=== PATIENT | female | born 1945 | race Caucasian/White ===

== ENCOUNTER 2020-03-25 06:08 | Inpatient (IN) | payer MEDICARE, OTHER ==
--- NOTE | 2020-03-21 10:37 | PCM.PREANE ---
Preanesthetic Assessment - Procedure Proposed Procedure: Right Total Knee Arthroplasty - Anesthesia/Transfusion/Family Hx Anesthesia History: Prior Anesthesia Without Reaction Family History of Anesthesia Reaction: No Transfusion History: No Prior Transfusion(s) Intubation History: Unknown - Review of Systems Pulmonary: No Symptoms (ETOH: rarely), Cough (seasonal allergies) Cardiovascular: No Symptoms (History of HTN), Lightheadedness Gastrointestinal: No Symptoms Neurological: No Symptoms (History of vertigo), Numbness (neuropathy in all toes bilateral feet) Other: Reports: Thyroid Problems (hypothyroid), Sinus Problem (chronic rhinitis), Depression - Physical Assessment NPO Status Date: 03/24/20 NPO Status Time: 20:45 Vital Signs: HR:86 B/P:182/87 Sat:99% Temp:97 Resp:20 Height: 1.63 m Weight: 71 kg ASA Class: 3 Mental Status: Alert & Oriented x3 Airway Class: Mallampati = 2 Dentition: Reports: Normal Dentition, Caries Thyro-Mental Finger Breadths: 3 Mouth Opening Finger Breadths: 3 ROM/Head Extension: Full Lungs: Clear to Auscultation, Normal Respiratory Effort Cardiovascular: Regular Rate, Regular Rhythm, No Murmurs - Lab Values: Laboratory Last Values MRSA (PCR) Negative 03/13/20 13:41 All labs reviewed and noted and within acceptable ranges to proceed with scheduled procedure. - Imaging/EKG Impressions: CXR: negative EKG: NSR rate =66 - Allergies Allergies/Adverse Reactions: Allergies Allergy/AdvReac Type Severity Reaction Status Date / Time amlodipine Allergy Rash Verified 03/22/20 11:17 cortisone [Cortisone] Allergy Rash Verified 03/22/20 11:17 pollen extracts Allergy Swollen Verified 03/22/20 11:17 Eyes ranitidine HCl [From Zantac] Allergy Hives Verified 03/22/20 11:17 Sulfa (Sulfonamide Allergy Cannot Verified 03/22/20 11:17 Antibiotics) Remember benazepril [From Lotensin] AdvReac Headache Verified 03/22/20 11:17 benazepril HCl AdvReac Headache Verified 03/22/20 11:17 [From Lotensin HCT] fosinopril sodium AdvReac Ringing in Verified 03/22/20 11:17 [From Monopril] the Ears metoprolol succinate AdvReac Nausea Verified 03/22/20 11:17 [From Toprol XL] - Anesthesia Plan Pre-Op Medication Ordered: None - Acknowledgements Anesthesia Type Planned: Spinal (Right Adductor Canal Block under US guidance for post operative pain control requested by Dr. Leon) Pt an Appropriate Candidate for the Planned Anesthesia: Yes Alternatives and Risks of Anesthesia Discussed w Pt/Guardian: Yes Pt/Guardian Understands and Agrees with Anesthesia Plan: Yes PreAnesthesia Questionnaire Cardiovascular History: Reports: Hypertension Musculoskeletal History: Reports: Arthritis - Past Surgical History HEENT Surgical History: Reports: Cataract Surgery, Eye Surgery Female Surgical History: Reports: Hysterectomy, Salpingo-Oophorectomy - HOME MEDS Home Medications: Home Meds Calcium Carb/D3/Magnesium/Zinc [Erik Mag Zinc + D3] 1 tab PO TID 03/22/20 [History] Cholecalciferol (Vitamin D3) [Vitamin D3] 5,000 unit PO DAILY 03/22/20 [History] Levothyroxine [Synthroid] 50 mcg PO DAILY 03/22/20 [History] Losartan Potassium 50 mg PO DAILY 03/22/20 [History] Melatonin 5 - 10 mg PO BEDTIME PRN 03/22/20 [History] Mineral Oil, Light/Mineral Oil [Soothe Xp Eye Drops] 1 drop EYEBOTH ASDIRECTED PRN 03/22/20 [History] Multivitamin [Multiple Vitamins] 1 tab PO DAILY 03/22/20 [History] Turmeric Root Extract [Turmeric] 500 mg PO DAILY 03/22/20 [History] Ubidecarenone [Coq-10] 100 mg PO DAILY 03/22/20 [History] Vit A/C/E AC/Znox/Cupric Oxide [Eye Vitamin-Minerals Tablet] 1 tab PO BID 03/22/20 [History] Vitamin B Complex 1 cap PO DAILY 03/22/20 [History] Vitamin E 400 unit PO DAILY 03/22/20 [History] - CURRENT (IN HOUSE) MEDS Current Meds: Current Medications Bisacodyl (Dulcolax) 5 mg PO DAILY PRN PRN Reason: Constipation Morphine Sulfate 8 mg/Epinephrine HCl 0.3 mg/Cefuroxime Sodium 750 mg/Ketorolac Tromethamine 30 mg/Sodium Chloride 7.9 ml 0 mg .XX ASDIRECTED PRN PRN Reason: Pain Cyclobenzaprine HCl (Flexeril) 10 mg PO TID PRN PRN Reason: Spasms Docusate Sodium (Colace) 100 mg PO BID [facility] Cefazolin Sodium/Dextrose 2 gm (/ Premix) 50 mls @ 100 mls/hr IV Q8H [facility] Stop: 03/25/20 22:29 Lactated Ringer's (Ringers, Lactated) 1,000 mls @ 125 mls/hr IV ASDIRECTED [facility] Ketorolac Tromethamine (Toradol) 15 mg IVPUSH Q6H PRN PRN Reason: Pain Lidocaine/Sodium Bicarbonate (Buffered Lidocaine 1% In Ns 8.4%) 0.25 ml IDERM ONETIME PRN PRN Reason: Prior to IV Start Magnesium Hydroxide (Milk Of Magnesia) 30 ml PO BID PRN PRN Reason: Constipation Morphine Sulfate (Morphine) 2 mg IVPUSH Q2H PRN PRN Reason: Breakthrough Pain Naloxone HCl (Narcan) 0.1 mg IVPUSH Q5M PRN PRN Reason: Oversedation Ondansetron HCl (Zofran) 4 mg IVPUSH Q6H PRN PRN Reason: Nausea/Vomiting Oxycodone/Acetaminophen (Percocet 325-5 Mg) 1 - 2 tab PO Q4H PRN PRN Reason: Pain Rivaroxaban (Xarelto) 10 mg PO DAILY [facility] Senna (Senna) 8.6 mg PO BID PRN PRN Reason: Constipation Sodium Chloride (Saline Flush) 10 ml FLUSH ASDIRECTED PRN PRN Reason: Keep Vein Open Discontinued Medications Aspirin (Ecotrin) 325 mg PO BID [facility]
--- NOTE | 2020-03-21 10:39 | PCM.SN.2 ---
- Free Text/Narrative Note: Right selective femoral nerve block at the adductor canal for post-procedure pain control under US guidance requested by Dr. Leon. Time Out: 08 Start: 0853 End: 0900 Chart reviewed. Consent signed. Questions answered. Appropriate monitors applied. Time out performed. Right mid-shaft femur identified with ultrasound, scanning medially of femur, the femoral artery in the adductor canal visualized, and the femoral nerve located laterally to the artery. The skin was prepped lateral to the ultrasound probe with chlorahexadine times two. The 21ga 4 insulated block needle was inserted under direct ultrasound guidance into the adductor canal. 25mL of 0.5% ropivacaine with 1:200,000 epinephrine was injected circumferentially around the nerve with intermittent negative aspiration noted. Patient tolerated the procedure well. Sterile technique noted along with sterile gloves, mask, and sterile probe cover. See picture on progress note and vital signs on nurses notes. Block completed in PACU. Awilda Cash CRNA
[~2020-03-25 06:08] MED LIST: Bisacodyl 5 MG Tab PO PRN; Cyclobenzaprine 10 MG Tab PO PRN; EPINEPHrine 1 MG/ML SDV ONE; Ketamine 500 mg/10 ML MDV ONE; Lactated Ringers 1,000 ML IV SCH; Lactated Ringers 1,000 ML ONE; Lidocaine 1% 4 ML ONE; Lidocaine 1%/Sod Bicarbonate in NS 8.4% 1 ML Syringe IDERM PRN; Magnesium Hydroxide 400 MG/5 ML Susp 30 ML Cup PO PRN; Midazolam 1 MG/ML 2 ML SDV ONE; Morphine 2 MG/ML SYRINGE IVPUSH PRN; Naloxone 0.4 MG/ML SDV IVPUSH PRN; Ondansetron 4 MG/2 ML SDV IVPUSH PRN; Ondansetron 4 MG/2 ML SDV ONE; Propofol 200 MG/20 ML SDV ONE; Ropivacaine 0.5% 5 MG/ML 30 ML SDV ONE; Sennosides 8.6 MG Tab PO PRN; Sodium Chloride 0.9% 10 ML Syringe FLUSH PRN; ceFAZolin 1 GM Vial ONE; fentaNYL 100 MCG/2 ML SDV ONE
[2020-03-25] MEDS ORDERED: ceFAZolin 1 GM Vial ONE (06:12)
[2020-03-25] MEDS ORDERED: Bupivacaine 0.25% 10 ML SDV ONE (06:12)
[2020-03-25] MEDS ORDERED: Iodine/Sodium Iodide 2% Tincture 30 ML Bottle ONE (06:12)
[2020-03-25] MEDS ORDERED: Vancomycin 1 GM SDV ONE (06:12)
[2020-03-25] MEDS ORDERED: Morphine Sulfate 8 MG, EPINEPHrine 0.3 MG, Cefuroxime 750 MG, Ketorolac 30 MG, Sodium C... PRN ×10 (07:08→07:35)
[2020-03-25] MEDS ORDERED: fentaNYL 100 MCG/2 ML SDV IVPUSH PRN (07:17)
[2020-03-25] MEDS ORDERED: diphenhydrAMINE 50 MG/ML SDV IVPUSH PRN (07:17)
[2020-03-25] MEDS ORDERED: HYDROmorphone 0.5 MG/0.5 ML Syringe IVPUSH PRN (07:17)
[2020-03-25] MEDS ORDERED: Ondansetron 4 MG/2 ML SDV IVPUSH PRN (07:17)
[2020-03-25] MEDS ORDERED: ePHEDrine 50 MG/ML SDV IVPUSH PRN (07:17)
[2020-03-25] MEDS ORDERED: Phenylephrine 1 MG in Sodium Chloride 0.9% 10 ML IV SCH (07:30)
--- NOTE | 2020-03-25 08:51 | PCM.POSTAN ---
POST ANESTHESIA ASSESSMENT - MENTAL STATUS Mental Status: Alert - VITAL SIGNS Vital Signs: Last Vital Signs Temp 97.3 03/25/20 0845 Pulse 83 03/25/20 0845 Resp 16 03/25/20 0845 BP 124/59 03/25/20 0845 Pulse Ox 96% 03/25/20 0845 - RESPIRATORY Respiratory Status: Respiratory Rate WNL, Airway Patent, O2 Saturation Stable, Supplemental Oxygen - CARDIOVASCULAR CV Status: Pulse Rate WNL, Blood Pressure Stable - GASTROINTESTINAL GI Status: No Symptoms - POST OP HYDRATION Hydration Status: Adequate & Stable
[2020-03-25] MEDS: Acetaminophen/oxyCODONE 325-5 MG Tab PO PRN ×3 (09:41→21:05)
--- NOTE | 2020-03-25 09:42 | CR ---
Right knee: AP and lateral views of the right knee were obtained. Comparison: No prior knee exam is available. Knee prosthesis is seen. Components are aligned. Air is noted within the soft tissues compatible with recent surgical procedure. Underlying bony structures are intact. Impression: 1. Satisfactory radiographic appearance of recently placed right knee prosthesis. Diagnostic code #2 This report was dictated in MDT
[2020-03-25] MEDS ORDERED: Ketorolac 15 MG/ML SDV IVPUSH PRN (11:00)
[2020-03-25] MEDS: Docusate Sodium 100 MG Cap PO SCH ×3 (11:09→21:03)
[2020-03-25] MEDS: Losartan 100 MG Tab PO SCH (11:34)
[2020-03-25] MEDS: ceFAZolin 2 GM in Premix Bag 1 BAG IV SCH (15:36)
[2020-03-25] MEDS: Calcium Carbonate/Vitamin D3 600 MG-200 Units Tab PO SCH (21:03)
[2020-03-26] MEDS: ceFAZolin 2 GM in Premix Bag 1 BAG IV SCH ×2 (00:03→08:12)
[2020-03-26] MEDS: Acetaminophen/oxyCODONE 325-5 MG Tab PO PRN ×2 (01:16→05:17)
[2020-03-26] MEDS ORDERED: Acetaminophen/oxyCODONE 325-5 MG Tab PO PRN (05:30)
[2020-03-26] MEDS ORDERED: Levothyroxine 50 MCG Tab PO SCH (06:00)
[2020-03-26] MEDS ORDERED: Aspirin 325 MG Tab.EC PO SCH (06:00)
--- NOTE | 2020-03-26 08:05 | PCM48HPAN ---
Post Anesthesia Note - EVALUATION WITHIN 48HRS OF ANESTHETIC Vital Signs in Normal Range: Yes Patient Participated in Evaluation: Yes Respiratory Function Stable: Yes Airway Patent: Yes Cardiovascular Function Stable: Yes Hydration Status Stable: Yes Pain Control Satisfactory: Yes Nausea and Vomiting Control Satisfactory: Yes Mental Status Recovered: Yes Vital Signs: Last Vital Signs Temp 36.6 C 03/26/20 05:16 Pulse 73 03/26/20 05:16 Resp 18 03/26/20 05:16 BP 161/80 H 03/26/20 05:16 Pulse Ox 94 L 03/26/20 05:16
[2020-03-26] MEDS: Calcium Carbonate/Vitamin D3 600 MG-200 Units Tab PO SCH (08:12)
[2020-03-26] MEDS: Docusate Sodium 100 MG Cap PO SCH (08:12)
[2020-03-26 08:13] VITALS: PULSE 78
[2020-03-26] MEDS: Losartan 100 MG Tab PO SCH (08:13)
[2020-03-26] MEDS ORDERED: Cholecalciferol (Vitamin D3) 5,000 UNIT Tab PO SCH (09:00)
[2020-03-26] MEDS ORDERED: Rivaroxaban 10 MG Tab PO SCH (09:00)
[2020-03-26] MEDS ORDERED: Enoxaparin 40 MG/0.4 ML Syringe SUBCUT SCH (09:00)
[2020-03-26 11:31] VITALS: BP 153/66
--- NOTE | 2020-03-28 08:10 | PCM.OPNOTE ---
- General Post-Op/Procedure Note Date of Surgery/Procedure: 03/25/20 Operative Procedure(s): right total knee arthroplasty Pre Op Diagnosis: right knee osteoarthrosis Post-Op Diagnosis: Same Anesthesia Technique: Local, MAC, Spinal Primary Surgeon: Colten Leon Anesthesia Provider: Awilda Cash Storage Garage Manager: Regina Fernandez in mLs: 5 Complications: None Condition: Good Free Text/Narrative:: 11/24 9mm 32x10
--- NOTE | 2020-03-28 08:14 | PCM.SURGPN ---
- General Info Date of Service: 03/26/20 POD#: 1 Functional Status: Reports: Pain Controlled - Patient Data Vitals - Most Recent: Last Vital Signs Temp 36.5 C 03/26/20 11:13 Pulse 78 03/26/20 11:13 Resp 20 03/26/20 11:13 BP 153/66 H 03/26/20 11:13 Pulse Ox 94 L 03/26/20 11:13 Weight - Most Recent: 71 kg Med Orders - Current: Current Medications Discontinued Medications Aspirin (Ecotrin) 325 mg PO BID [facility] Bisacodyl (Dulcolax) 5 mg PO DAILY PRN PRN Reason: Constipation Bupivacaine HCl (Sensorcaine-Mpf 0.25%) Confirm Administered Dose 30 ml .ROUTE .STK-MED ONE Stop: 03/25/20 06:13 Last Admin: 03/25/20 08:18 Dose: 30 ml Documented by: Calcium Carbonate (Calcium Carbonate/Vitamin D 600 Mg-200 Unit) 1 tab PO TID [facility] Last Admin: 03/26/20 08:12 Dose: 1 tab Documented by: Cefazolin Sodium (Ancef) Confirm Administered Dose 2 gm .ROUTE .STK-MED ONE Stop: 03/25/20 06:08 Last Admin: 03/25/20 08:11 Dose: 2 gm Documented by: Cefazolin Sodium (Ancef) Confirm Administered Dose 2 gm .ROUTE .STK-MED ONE Stop: 03/25/20 06:13 Cholecalciferol (Vitamin D3) 5,000 unit PO DAILY [facility] Last Admin: 03/26/20 08:12 Dose: 5,000 unit Documented by: Morphine Sulfate 8 mg/Epinephrine HCl 0.3 mg/Cefuroxime Sodium 750 mg/Ketorolac Tromethamine 30 mg/Sodium Chloride 7.9 ml 0 mg .XX ASDIRECTED PRN PRN Reason: Pain Stop: 03/25/20 11:00 Cyclobenzaprine HCl (Flexeril) 10 mg PO TID PRN PRN Reason: Spasms Last Admin: 03/26/20 04:10 Dose: 10 mg Documented by: Diphenhydramine HCl (Benadryl) 25 mg IVPUSH Q6H PRN PRN Reason: pruritis Stop: 03/25/20 12:00 Docusate Sodium (Colace) 100 mg PO BID [facility] Last Admin: 03/26/20 08:12 Dose: 100 mg Documented by: Enoxaparin Sodium (Lovenox) 40 mg SUBCUT DAILY [facility] Last Admin: 03/26/20 08:14 Dose: 40 mg Documented by: Ephedrine Sulfate (Ephedrine Sulfate) 5 mg IVPUSH ASDIRECTED PRN PRN Reason: Hypotension Stop: 03/25/20 12:00 Epinephrine HCl (Adrenalin) Confirm Administered Dose 1 mg .ROUTE .STK-MED ONE Stop: 03/25/20 06:01 Fentanyl (Sublimaze) Confirm Administered Dose 100 mcg .ROUTE .STK-MED ONE Stop: 03/25/20 06:08 Fentanyl (Sublimaze) 50 mcg IVPUSH Q5M PRN PRN Reason: Pain Stop: 03/25/20 12:00 Hydromorphone HCl (Dilaudid) 0.5 mg IVPUSH ONETIME PRN PRN Reason: Pain Stop: 03/25/20 12:00 Cefazolin Sodium/Dextrose 2 gm (/ Premix) 50 mls @ 100 mls/hr IV Q8H [facility] Stop: 03/26/20 08:44 Last Admin: 03/26/20 08:12 Dose: 100 mls/hr Documented by: Lactated Ringer's (Ringers, Lactated) 1,000 mls @ 125 mls/hr IV ASDIRECTED [facility] Stop: 03/25/20 23:00 Last Admin: 03/25/20 06:20 Dose: 125 mls/hr Documented by: Lidocaine HCl (Xylocaine-Mpf 1%) Confirm Administered Dose 4 mls @ as directed .ROUTE .STK-MED ONE Stop: 03/25/20 06:08 Lactated Ringer's (Ringers, Lactated) Confirm Administered Dose 1,000 mls @ as directed .ROUTE .STK-MED ONE Stop: 03/25/20 06:08 Phenylephrine HCl 1 mg/ Sodium (Chloride) 10.1 mls @ 1 mls/sec IV TITRATE [facility]; Protocol Stop: 03/25/20 12:00 Iodine (Iodine 2% Mild Tincture) Confirm Administered Dose 30 ml .ROUTE .STK-MED ONE Stop: 03/25/20 06:13 Last Admin: 03/25/20 08:08 Dose: 18 ml Documented by: Ketamine HCl (Ketalar) Confirm Administered Dose 500 mg .ROUTE .STK-MED ONE Stop: 03/25/20 06:09 Ketorolac Tromethamine (Toradol) 15 mg IVPUSH Q6H PRN PRN Reason: Pain Last Admin: 03/25/20 21:04 Dose: 15 mg Documented by: Levothyroxine Sodium (Synthroid) 50 mcg PO [facility] Last Admin: 03/26/20 05:17 Dose: 50 mcg Documented by: Lidocaine/Sodium Bicarbonate (Buffered Lidocaine 1% In Ns 8.4%) 0.25 ml IDERM ONETIME PRN PRN Reason: Prior to IV Start Stop: 03/25/20 23:00 Last Admin: 03/25/20 06:20 Dose: 0.25 ml Documented by: Losartan Potassium (Cozaar) 50 mg PO DAILY [facility] Last Admin: 03/26/20 08:13 Dose: 50 mg Documented by: Magnesium Hydroxide (Milk Of Magnesia) 30 ml PO BID PRN PRN Reason: Constipation Midazolam HCl (Versed 1 Mg/Ml) Confirm Administered Dose 2 mg .ROUTE .STK-MED ONE Stop: 03/25/20 06:08 Miscellaneous Medication (Phenylephrine 1 Mg/10 Ml-Ns) Confirm Administered Dose 1 mg IV .STK-MED ONE Stop: 03/25/20 06:08 Morphine Sulfate (Morphine) 2 mg IVPUSH Q2H PRN PRN Reason: Breakthrough Pain Naloxone HCl (Narcan) 0.1 mg IVPUSH Q5M PRN PRN Reason: Oversedation Ondansetron HCl (Zofran) 4 mg IVPUSH Q6H PRN PRN Reason: Nausea/Vomiting Ondansetron HCl (Zofran) Confirm Administered Dose 4 mg .ROUTE .STK-MED ONE Stop: 03/25/20 06:08 Ondansetron HCl (Zofran) 4 mg IVPUSH ONETIME PRN PRN Reason: Nausea/Vomiting Stop: 03/25/20 12:00 Oxycodone/Acetaminophen (Percocet 325-5 Mg) 1 - 2 tab PO Q4H PRN PRN Reason: Pain Stop: 03/25/20 23:00 Last Admin: 03/25/20 21:05 Dose: 1 tab Documented by: Oxycodone/Acetaminophen (Percocet 325-5 Mg) 1 tab PO Q4H PRN PRN Reason: Pain (moderate 4-6) Last Admin: 03/26/20 05:17 Dose: 2 tab Documented by: Oxycodone/Acetaminophen (Percocet 325-5 Mg) 1 - 2 tab PO Q4H PRN PRN Reason: Pain (moderate 4-6) Last Admin: 03/26/20 10:06 Dose: 1 tab Documented by: Propofol (Diprivan 20 Ml) Confirm Administered Dose 400 mg .ROUTE .STK-MED ONE Stop: 03/25/20 06:08 Rivaroxaban (Xarelto) 10 mg PO DAILY [facility] Ropivacaine (Naropin 0.5%) Confirm Administered Dose 30 ml .ROUTE .STK-MED ONE Stop: 03/25/20 06:01 Senna (Senna) 8.6 mg PO BID PRN PRN Reason: Constipation Sodium Chloride (Saline Flush) 10 ml FLUSH ASDIRECTED PRN PRN Reason: Keep Vein Open Stop: 03/25/20 23:00 Tranexamic Acid (Cyklokapron) Confirm Administered Dose 1,000 mg .ROUTE .STK-MED ONE Stop: 03/25/20 06:13 Last Admin: 03/25/20 08:23 Dose: 1,000 mg Documented by: Vancomycin HCl (Vancomycin) Confirm Administered Dose 1 gm .ROUTE .STK-MED ONE Stop: 03/25/20 06:13 Last Admin: 03/25/20 08:23 Dose: 1 gm Documented by: - Exam Physical Findings Comment:: no calf tenderness, patient is neurovascularly intact, bandage was clean dry and intact, motion from 2-85 POD#1 and able lift heel off the floor Sepsis Event Note - Evaluation Sepsis Screening Result: No Definite Risk - Focused Exam Date Exam was Performed: 03/28/20 Time Exam was Performed: 08:12 - Problem List Review Problem List Initiated/Reviewed/Updated: Yes - Plan Plan (Free Text/Narrative):: A: POD#1 right total knee arthroplasty -pain is controlled -met all PT goals for discharge -will do Lovenox 30mg BID for 4 weeks as patient did not want eliquis or xarelto -keep dressing intact -able to be discharged today and contact us at the clinic with any concerns
--- NOTE | 2020-03-28 08:53 | OR ---
DATE OF OPERATION: 03/25/2020 SURGEON: Colten Leon MD OPERATION PERFORMED: Right total knee arthroplasty. PREOPERATIVE DIAGNOSIS: Right knee osteoarthrosis. POSTOPERATIVE DIAGNOSIS: Right knee osteoarthrosis. ANESTHESIA: Local MAC with spinal. ANESTHESIA PROVIDER: Awilda Cash CRNA. HEALTH INFORMATION CLERK: Regina Fernandez LPN. ESTIMATED BLOOD LOSS: 5 mL. COMPLICATIONS: None. CONDITION: Stable. IMPLANTS: 1. Yosvany size 4 cemented PS femur. 2. Yosvany size 4 cemented universal tibial baseplate. 3. Yosvany size 4, 9 mm PS X3 polyethylene. 4. [place] size 32 x 10 mm cemented asymmetric patella. DESCRIPTION OF PROCEDURE: The patient was identified in the preop holding area. Proper site was marked and identified by the surgeon. The patient was taken back to the operating theater. After adequate anesthesia, the patient's right lower extremity had a nonsterile tourniquet applied and it was sterilely prepped and draped in the usual sterile fashion. OR time-out was performed. The patient received 2 g IV Ancef. At this time, the right lower extremity was exsanguinated. Tourniquet was insufflated to 300 mmHg. Standard medial parapatellar incision was made. Medial parapatellar arthrotomy was created. Deep fibers of the MCL were raised and anterior fat pad was resected. At this time, attention was turned to the patella. Patella measured 24, it was resected to a 14 for a 32 x 10 mm patella. Drill holes were then drilled and found to be in adequate position. The drill was then drilled in the distal femur and the intramedullary distal femoral cutting guide was then placed. 8 mm was resected off the distal femur and was found to be an adequate resection. Sizing guide was placed. It was found to be a size 4 cemented PS femur that was shown on the implant record at the beginning of this dictation. The drill holes were drilled for the epicondylar axis using Whitesides line and epicondyles as reference. At this time, the 4-in-1 cutting block was placed. An anterior posterior and anterior and posterior chamfer cuts were then completed. Box cut was completed. Attention was turned to the tibia. The posterior medial lateral retractors were placed. The extramedullary tibial guide was placed. It was placed in the old footprint of the ACL. It was aligned with the center of the ankle and 0 degrees of slope, 9 mm was then resected off the unaffected side. There was found to be an acceptable reduction. At this time, posterior osteophytes were removed along with medial and lateral meniscus. A trial implant was placed with a correct sized tibia that was mentioned at the beginning of the dictation. A Yosvany size 4, 9 mm PS X3 polyethylene insert was then placed. The patient's knee was brought through range of motion. The patella was tracking centrally and was stable to varus and valgus stress. Alignment was found to be roughly at 0 degrees. The tibia was stamped and drilled in proper rotation. Cement was mixed and all cut surfaces were irrigated and dried. The universal tibial base plate was impacted in place. Next, the [place] size 4 cemented PS femur impacted into place and the Yosvany size 4, 9 mm PS X3 polyethylene insert was placed. The patient's knee was brought into full extension. The patella was then cemented in place at this time. One liter dilute Betadine solution was irrigated through the knee along with 3 L of pulse lavage irrigation with Ancef. Periarticular injection was then completed. The patient's knee was brought through a range of motion. Once the cement had time to set up and it was found to be stable to varus valgus stress, the patella was tracking centrally with full range of motion. At this time, a #2 barbed suture was used for closure of the medial parapatellar arthrotomy. Topical tranexamic acid was placed. 2-0 Vicryl was used subcutaneously, Prineo was used for the skin. The patient tolerated the procedure well and was sent to the PACU in stable condition. MMODAL /[id number] JOSÉ MANUEL
== END 2020-03-26 13:30 | disposition home or self-care (01) | DRG 470 ==
LOC: JD.SDS 06:08 → JD.MS 06:09 → JD.SDS 10:21
PROVIDERS: ADMIT Orthopaedic Surgery; ATTEND Orthopaedic Surgery
PROC: 0SRC0J9 Replacement of Right Knee Joint with Synthetic Substitute, Cemented, Open Approach (ICD-10-PCS; principal; 2020-03-25)
DX: M17.11 Unilateral primary osteoarthritis, right knee (principal); I10 Essential (primary) hypertension; G47.00 Insomnia, unspecified; E03.9 Hypothyroidism, unspecified; G62.9 Polyneuropathy, unspecified; Z88.2 Allergy status to sulfonamides; Z88.8 Allergy status to other drugs, medicaments and biological substances; Z11.59 Encounter for screening for other viral diseases
CPT/HCPCS: 01402; 36415; 64450; 73560-26-RT; 73560-RT; 80053; 85027; 87641; 97110-GP; 97116-GP; 97161-GP; 97165-GO; 97535-GO; A9270-GY; C1713; C1776; J0171; J0690; J0697; J1650; J1885; J2001; J2250; J2270; J2370; J2405; J2704; J2795; J3010; J3370; J3490; J7120; U0002

== ENCOUNTER 2024-07-30 00:52 | Inpatient (IN) | payer MEDICARE, OTHER ==
[2024-07-30] MEDS ORDERED: Naloxone 0.4 MG/ML SDV IVPUSH PRN ×2 (01:13→03:03)
[2024-07-30] MEDS ORDERED: Sodium Chloride 0.9% 10 ML Syringe FLUSH PRN (01:14)
[2024-07-30 01:19] LABS: BASOPHILS PERCENT AUTO 0.4 % (0.0-1.0); EOSINOPHILS ABSOLUTE AUTO 0.3 K/mm3 (0.0-0.4); EOSINOPHILS PERCENT AUTO 3.3 % (0.0-6.0); HEMATOCRIT 44.1 % (37.0-47.0); HEMOGLOBIN 14.2 gm/dl (12.0-16.0); IMMATURE GRAN ABSOLUTE AUTO 0.03 K/mm3 (0.00-0.05); IMMATURE GRAN PERCENT AUTO 0.3 % (0.0-0.4); LYMPHOCYTES ABSOLUTE AUTO 1.9 K/mm3 (1.0-4.8); LYMPHOCYTES PERCENT AUTO 19.8 % (24.0-44.0); MEAN CORPUSCULAR HEMOGLOBIN 29.2 pg (28.0-32.0); MEAN CORPUSCULAR HGB CONC 32.2 g/dl (32.0-36.0); MEAN CORPUSCULAR VOLUME 90.7 fl (83.0-99.0); MEAN PLATELET VOLUME 9.3 fl (9.4-12.3); MONOCYTES ABSOLUTE AUTO 0.7 K/mm3 (0.0-0.8); MONOCYTES PERCENT AUTO 7.8 % (0.0-8.0); NEUTROPHILS ABSOLUTE AUTO 6.5 K/mm3 (1.8-7.7); NEUTROPHILS PERCENT AUTO 68.4 % (41.0-71.0); PLATELET COUNT,PLT 253 K/mm3 (150-400); RED BLOOD CELL COUNT 4.86 M/mm3 (4.10-5.30); WHITE BLOOD CELL COUNT,WBC 9.45 K/mm3 (3.9-11.3)
[2024-07-30] MEDS: Morphine 4 MG/ML Syringe IVPUSH ONE ×2 (01:21→03:08)
[2024-07-30] MEDS: Ondansetron 4 MG/2 ML SDV IVPUSH ONE (01:22)
[2024-07-30 01:31] LABS: INR 0.99; PROTHROMBIN TIME 10.5 SECONDS (9.7-12.0)
[2024-07-30 01:37] LABS: ALANINE AMINOTRANSFERASE,ALT 26 U/L (14-59); ALKALINE PHOSPHATASE 115 U/L (46-116); ASPARTATE AMNIOTRANSFERASE,AST 24 U/L (15-37); BILIRUBIN TOTAL 0.6 mg/dL (0.2-1.0); BLOOD UREA NITROGEN,BUN 23 mg/dL (7-18); BUN/CREATININE RATIO 20.9 (14-18); CALCIUM 9.3 mg/dL (8.5-10.1); CARBON DIOXIDE,CO2 24 mEq/L (21-32); CHLORIDE,CL 101 mEq/L (98-107); CREATININE 1.1 mg/dL (0.55-1.02); ESTIMATED GFR 50 mL/min (>60); GLUCOSE RANDOM 138 mg/dL (70-99); PROTEIN TOTAL,TP 7.9 g/dl (6.4-8.2); SODIUM,NA 136 mEq/L (136-145); TROPONIN I HIGH SENSITIVITY 7 pg/mL (<=51)
[2024-07-30 03:31] LABS: MAGNESIUM 2.1 mg/dL (1.8-2.4); TSH 8.549 uIU/mL (0.358-3.74)
[2024-07-30 03:50] LABS: T4 FREE 1.04 ng/dL (0.76-1.46)
[2024-07-30] MEDS: Morphine 4 MG/ML Syringe IVPUSH PRN (08:25)
[2024-07-30] MEDS ORDERED: Melatonin 3 MG Tab PO PRN (09:41)
[2024-07-30] MEDS ORDERED: LORazepam 2 MG/ML SDV IV PRN (09:41)
[2024-07-30] MEDS ORDERED: hydrALAZINE 20 MG/ML SDV IVPUSH PRN (09:48)
[2024-07-30] MEDS ORDERED: Magnesium Hydroxide 400 MG/5 ML Susp 30 ML Cup PO PRN (09:48)
[2024-07-30] MEDS ORDERED: Carboxymethylcellulose Sodium 1% Ophth Gel 15 ML Bottle EYEBOTH PRN (09:48)
[2024-07-30] MEDS ORDERED: Labetalol 100 MG/20 ML MDV IVPUSH PRN (09:48)
[2024-07-30] MEDS: Heparin Sodium 5,000 Units/ML Vial SUBCUT SCH (11:28)
[2024-07-30] MEDS: Losartan 50 MG Tab PO SCH (11:30)
[2024-07-30] MEDS: Docusate Sodium 100 MG Cap PO PRN (11:30)
[2024-07-30] MEDS: traMADol 50 MG Tab PO PRN (11:31)
[2024-07-30] MEDS: Polyethylene Glycol 3350 Powder 17 GM Packet PO SCH (11:34)
[2024-07-30 18:47] LABS: APPEARANCE,URINE CLEAR (Clear); BILIRUBIN,URINE NEGATIVE (Negative); COLOR,URINE YELLOW (Yellow); GLUCOSE,URINE NEGATIVE (Negative); KETONES,URINE NEGATIVE (Negative); LEUKOCYTE ESTERASE,URINE 1+ (Negative); NITRITE,URINE NEGATIVE (Negative); OCCULT BLOOD,URINE NEGATIVE (Negative); PROTEIN,URINE NEGATIVE (Negative); UROBILINOGEN,URINE 0.2 (0.2-1.0)
[2024-07-30 18:56] LABS: RBC,URINE 0-5 /hpf (0-5)
[2024-07-30 18:57] LABS: BACTERIA,URINE MODERATE /hpf (FEW); MUCUS,URINE FEW /hpf (FEW)
[2024-07-30] MEDS: Morphine 2 MG/ML SYRINGE IVPUSH PRN (20:21)
[2024-07-30] MEDS: Famotidine 20 MG Tab PO SCH (20:22)
[2024-07-31 05:59] LABS: BASOPHILS PERCENT AUTO 0.4 % (0.0-1.0); EOSINOPHILS ABSOLUTE AUTO 0.4 K/mm3 (0.0-0.4); EOSINOPHILS PERCENT AUTO 6.6 % (0.0-6.0); HEMATOCRIT 40.1 % (37.0-47.0); HEMOGLOBIN 13.3 gm/dl (12.0-16.0); IMMATURE GRAN ABSOLUTE AUTO 0.02 K/mm3 (0.00-0.05); IMMATURE GRAN PERCENT AUTO 0.3 % (0.0-0.4); LYMPHOCYTES ABSOLUTE AUTO 1.6 K/mm3 (1.0-4.8); LYMPHOCYTES PERCENT AUTO 23.2 % (24.0-44.0); MEAN CORPUSCULAR HEMOGLOBIN 29.2 pg (28.0-32.0); MEAN CORPUSCULAR HGB CONC 33.2 g/dl (32.0-36.0); MEAN CORPUSCULAR VOLUME 87.9 fl (83.0-99.0); MEAN PLATELET VOLUME 9.4 fl (9.4-12.3); MONOCYTES ABSOLUTE AUTO 0.5 K/mm3 (0.0-0.8); MONOCYTES PERCENT AUTO 7.8 % (0.0-8.0); NEUTROPHILS ABSOLUTE AUTO 4.1 K/mm3 (1.8-7.7); NEUTROPHILS PERCENT AUTO 61.7 % (41.0-71.0); PLATELET COUNT,PLT 208 K/mm3 (150-400); RED BLOOD CELL COUNT 4.56 M/mm3 (4.10-5.30); WHITE BLOOD CELL COUNT,WBC 6.69 K/mm3 (3.9-11.3)
[2024-07-31 06:10] LABS: ANION GAP 13.2 (5-15); BUN/CREATININE RATIO 22.5 (14-18); CALCIUM 8.5 mg/dL (8.5-10.1); CREATININE 0.8 mg/dL (0.55-1.02); EST CRCL DRUG DOSING (CG) 49.63 mL/min; PHOSPHORUS 3.6 mg/dL (2.6-4.7); POTASSIUM,K 4.2 mEq/L (3.5-5.1)
[2024-07-31 06:17] LABS: INR 1.05; PROTHROMBIN TIME 11.1 SECONDS (9.7-12.0)
[2024-07-31] MEDS: Levothyroxine 50 MCG Tab PO SCH (06:44)
[2024-07-31] MEDS ORDERED: HYDROmorphone 0.5 MG/0.5 ML Syringe IVPUSH PRN (06:57)
[2024-07-31] MEDS ORDERED: Sodium Chloride 0.9% 10 ML Syringe FLUSH PRN (06:57)
[2024-07-31] MEDS ORDERED: Ondansetron 4 MG/2 ML SDV IVPUSH PRN (06:57)
[2024-07-31] MEDS ORDERED: fentaNYL 100 MCG/2 ML SDV IVPUSH PRN ×2 (06:57→13:26)
[2024-07-31] MEDS ORDERED: Lactated Ringers 1,000 ML IV SCH (07:00)
[2024-07-31] MEDS ORDERED: fentaNYL 100 MCG/2 ML SDV ONE (11:15)
[2024-07-31] MEDS ORDERED: Propofol 200 MG/20 ML SDV ONE (11:16)
[2024-07-31] MEDS ORDERED: Phenylephrine 1% 10 MG/ML SDV ONE (12:25)
[2024-07-31] MEDS ORDERED: ceFAZolin 2 GM Vial ONE (12:32)
[2024-07-31] MEDS ORDERED: Lactated Ringers 1,000 ML ONE (12:40)
[2024-07-31] MEDS: VANCOmycin 1 GM SDV ONE (13:40)
[2024-07-31] MEDS: Tranexamic Acid 1,000 MG/10 ML Vial ONE (13:40)
[2024-07-31] MEDS: Morphine 8 MG, EPINEPHrine 0.3 MG, Cefuroxime 750 MG, Ketorolac 30 MG, Sodium Chloride ... PRN (13:40)
[2024-07-31] MEDS: Sodium Chloride 0.9% 10 ML Syringe FLUSH SCH (16:18)
[2024-07-31] MEDS: Famotidine 20 MG Tab PO SCH (21:06)
[2024-08-01 04:36] LABS: HEMATOCRIT 37.8 % (37.0-47.0); HEMOGLOBIN 12.3 gm/dl (12.0-16.0); MEAN CORPUSCULAR HEMOGLOBIN 29.5 pg (28.0-32.0); MEAN CORPUSCULAR HGB CONC 32.5 g/dl (32.0-36.0); MEAN CORPUSCULAR VOLUME 90.6 fl (83.0-99.0); MEAN PLATELET VOLUME 9.9 fl (9.4-12.3); PLATELET COUNT,PLT 198 K/mm3 (150-400); RED BLOOD CELL COUNT 4.17 M/mm3 (4.10-5.30); WHITE BLOOD CELL COUNT,WBC 6.74 K/mm3 (3.9-11.3)
[2024-08-01 04:51] LABS: ANION GAP 12.5 (5-15); CALCIUM 8.4 mg/dL (8.5-10.1); EST CRCL DRUG DOSING (CG) 39.7 mL/min; POTASSIUM,K 4.5 mEq/L (3.5-5.1)
[2024-08-01] MEDS: Acetaminophen 325 MG Tab PO PRN (08:44)
[2024-08-01] MEDS: Cholecalciferol (Vitamin D3) 5,000 UNIT Cap PO SCH (08:45)
[2024-08-01] MEDS: Enoxaparin 40 MG/0.4 ML Syringe SUBCUT SCH (11:07)
[2024-08-01] MEDS: Sennosides/Docusate Sodium 50-8.6 MG Tab PO PRN (20:18)
[2024-08-01] MEDS: cefTRIAXone 1 GM in Sodium Chloride 0.9% 50 ML IV SCH (22:15)
[2024-08-02] MEDS: Cyclobenzaprine 10 MG Tab PO PRN (06:13)
[2024-08-02 08:11] VITALS: BP 144/78; PULSE 102
[2024-08-03 04:42] LABS: VITAMIN D 1,25 73.4 pg/mL (19.9-79.3)
== END 2024-08-02 12:22 | disposition home or self-care (01) | DRG 522 ==
LOC: JD.ED 00:52 → JD.MS 07:09
PROVIDERS: ADMIT Student in an Organized Health Care Education/Training Program; ATTEND Student in an Organized Health Care Education/Training Program
PROC: 0SR90JZ Replacement of Right Hip Joint with Synthetic Substitute, Open Approach (ICD-10-PCS; principal; 2024-07-31 12:00)
DX: S72.031A Displaced midcervical fracture of right femur, initial encounter for closed fracture (principal); N39.0 Urinary tract infection, site not specified; W01.0XXA Fall on same level from slipping, tripping and stumbling without subsequent striking against object, initial encounter; E03.9 Hypothyroidism, unspecified; I10 Essential (primary) hypertension; Z96.651 Presence of right artificial knee joint; H54.7 Unspecified visual loss; M19.90 Unspecified osteoarthritis, unspecified site; G62.9 Polyneuropathy, unspecified; H91.91 Unspecified hearing loss, right ear; G47.00 Insomnia, unspecified; F15.90 Other stimulant use, unspecified, uncomplicated; R94.31 Abnormal electrocardiogram [ECG] [EKG]; R79.89 Other specified abnormal findings of blood chemistry; Y93.89 Activity, other specified; Y92.59 Other trade areas as the place of occurrence of the external cause; Z88.2 Allergy status to sulfonamides; Z88.8 Allergy status to other drugs, medicaments and biological substances; Z91.09 Other allergy status, other than to drugs and biological substances; Z79.1 Long term (current) use of non-steroidal anti-inflammatories (NSAID); Z79.899 Other long term (current) drug therapy; Z98.49 Cataract extraction status, unspecified eye; Z90.710 Acquired absence of both cervix and uterus; Z98.890 Other specified postprocedural states
CPT/HCPCS: 36415; 71045; 73502; 73560; 80053; 83735; 84439; 84443; 84484; 85025; 85610; 93005; 96374; 96375; 96376; 99285; J2270 ×2; J2405; 01214; 73501-26-RT; 73501-RT; 73700-26-RT; 73700-RT; 80048; 81001; 82652; 84100; 85027; 87086; 87641; 94760; 94761; 97110-GP; 97116-GP; 97161-GP; 97530-GP; 99100; A9270-GY; C1713; C1776; J0171; J0690; J0696; J0697; J1644; J1650; J1885; J2272; J2371; J2704; J3010; J3490; J7120

== ENCOUNTER 2025-04-26 08:19 | Emergency (ER) | payer MEDICARE, OTHER ==
[2025-04-26 08:55] VITALS: PULSE 68
[2025-04-26 17:02] VITALS: BP 177/88
== END 2025-04-26 11:45 | disposition home or self-care (01) ==
LOC: JD.ED 08:19
DX: I10 Essential (primary) hypertension (principal); E03.9 Hypothyroidism, unspecified; M19.90 Unspecified osteoarthritis, unspecified site; Z79.899 Other long term (current) drug therapy; Z79.890 Hormone replacement therapy; Z79.82 Long term (current) use of aspirin; Z88.2 Allergy status to sulfonamides; Z88.8 Allergy status to other drugs, medicaments and biological substances; Z90.710 Acquired absence of both cervix and uterus
CPT/HCPCS: 99283